=== PATIENT | male | born 1995 | race Caucasian/White ===

== ENCOUNTER 2016-09-24 10:28 | Emergency (ER) | payer SELFPAY ==
--- NOTE | 2016-09-24 11:02 | Emergency Department Record ---
History of Present Illness - General Chief Complaint: General Stated Complaint: MEDICATIN REFILLS Time Seen by Provider: 09/24/16 10:52 Source: Patient, RN notes reviewed Mode of Arrival: Ambulatory - History of Present Illness Initial comments: patient out of his meds and moved here from [place] 2 months ago [address] his Dr[address] in [place] will not refill and he hasn't set up aDr yet. [place] [facility] [place] [facility] [place]. PMH Bipolar , PTSD, ODD borderline personality disorder and OCC. PSH none. Dr. Terrell was his psychiatrist in [place]. No other medical problem No Chest pain or dyspnea and eating ok. - Related Data Previous Rx's Medication Instructions Recorded Bupropion HCl [Wellbutrin Sr] 100 mg PO BID #60 tablet.er 09/24/16 Buspirone HCl [Buspar] 15 mg PO BID #120 tablet 09/24/16 Divalproex Sodium [Depakote ER] 1,500 mg PO DAILY #90 tab.sr.24h 09/24/16 Propranolol HCl [Inderal] 1 tab PO BID #60 tablet 09/24/16 Venlafaxine HCl [Venlafaxine HCl 75 mg PO DAILY #90 tab.er.24 09/24/16 ER] Allergies Allergy/AdvReac Type Severity Reaction Status Date / Time No Known Drug Allergies Allergy Verified 09/24/16 10:35 Travel Screening - Travel/Exposure Within Last 30 Days Have you traveled within the last 30 days?: No - Travel/Exposure Within Last Year Have you traveled outside the [place] in the last year?: No - Additonal Travel Details Have you been exposed to anyone with a communicable illness?: No - Travel Symptoms Symptom Screening: None Review of Systems Reviewed: No additional complaints except as noted below Constitutional: Reports: As per HPI. Denies: Chills, Fever, Malaise, Night sweats, Weakness, Weight change Eyes: Reports: As per HPI. Denies: Eye discharge, Eye pain, Photophobia, Vision change ENT: Reports: As per HPI. Denies: Congestion, Dental pain, Ear pain, Epistaxis , Hearing loss, Throat pain Respiratory: Reports: As per HPI. Denies: Cough, Dyspnea, Hemoptysis, Stridor, Wheezes Cardiovascular: Reports: As per HPI. Denies: Arrhythmia, Chest pain, Dyspnea on exertion, Edema, Murmurs, Orthopnea, Palpitations, Paroxysmal nocturnal dyspnea, Rheumatic Fever, Syncope Endocrine: Reports: As per HPI. Denies: Fatigue, Heat or cold intolerance, Polydipsia, Polyuria Gastrointestinal: Reports: As per HPI. Denies: Abdominal pain, Constipation, Diarrhea, Hematemesis, Hematochezia, Melena, Nausea, Vomiting Genitourinary: Reports: As per HPI. Denies: Dysuria, Frequency, Hematuria, Incontinence, Retention, Testicular pain, Testicular mass, Urgency Musculoskeletal: Reports: As per HPI. Denies: Arthralgia, Back pain, Gout, Joint swelling, Myalgia, Neck pain Skin: Reports: As per HPI. Denies: Bruising, Change in color, Change in hair/ nails, Lesions, Pruritus, Rash Neurological: Reports: As per HPI. Denies: Abnormal gait, Confusion, Headache, Numbness, Paresthesias, Seizure, Tingling, Tremors, Vertigo, Weakness Psychiatric: Reports: As per HPI. Denies: Anxiety, Auditory hallucinations, Depression, Homicidal thoughts, Suicidal thoughts, Visual hallucinations Hematological/Lymphatic: Reports: As per HPI. Denies: Anemia, Blood Clots, Easy bleeding, Easy bruising, Swollen glands Past Medical History - SOCIAL HISTORY Smoking Status: Never smoker Alcohol Use: None Drug Use: None - RESPIRATORY Hx Respiratory Disorders: No - CARDIOVASCULAR Hx Cardio Disorders: No - NEURO Hx Neuro Disorders: No - GI Hx GI Disorders: No - Hx Genitourinary Disorders: No - ENDOCRINE Hx Endocrine Disorders: No - MUSCULOSKELETAL Hx Musculoskeletal Disorders: No - PSYCH Hx Psych Problems: Yes Comment:: O.D.D., bipolar, A.D.D. - HEMATOLOGY/ONCOLOGY Hx Hematology/Oncology Disorders: No Family Medical History Any Significant Family History?: Yes Hx Anxiety: Father, Mother Hx Dementia: Grandparents Hx Diabetes: Father Hx Heart Disease: Mother Hx HTN: Mother Hx Stroke: Grandparents Physical Exam - General General Appearance: Alert, Oriented x3, Cooperative, No acute distress - Head Head exam: Normal inspection - Eye Eye exam: Normal appearance, PERRL Pupils: Normal accommodation - ENT ENT exam: Normal exam, Mucous membranes moist, Normal external ear exam, Normal orophraynx, TM's normal bilaterally Ear exam: Normal external inspection. negative: External canal tenderness Nasal Exam: Normal inspection. negative: Discharge, Sinus tenderness Mouth exam: Normal external inspection, Tongue normal Teeth exam: Normal inspection. negative: Dental caries Throat exam: Normal inspection. negative: Tonsillar erythema, Tonsillar exudate - Neck Neck exam: Normal inspection, Full ROM. negative: Tenderness - Respiratory Respiratory exam: Normal lung sounds bilaterally. negative: Respiratory distress - Cardiovascular Cardiovascular Exam: Regular rate, Normal rhythm, Normal heart sounds - GI/Abdominal GI/Abdominal exam: Soft, Normal bowel sounds. negative: Tenderness - Rectal Rectal exam: Deferred - exam: Deferred - Extremities Extremities exam: Normal inspection, Full ROM, Normal capillary refill. negative: Tenderness - Back Back exam: Reports: Normal inspection, Full ROM. Denies: Muscle spasm, Rash noted, Tenderness - Neurological Neurological exam: Alert, Normal gait, Oriented X3, Reflexes normal - Psychiatric Psychiatric exam: Normal affect, Normal mood - Skin Skin exam: Dry, Intact, Normal color, Warm Course Vital Signs 09/24/16 10:42 Temperature 98.1 F Pulse Rate 93 H Blood Pressure 103/60 Pulse Ox 97 Disposition Clinical Impression: Bipolar 1 disorder Disposition: Home, Self-Care Instructions: Bipolar Disorder (ED) Additional Instructions: follow up with primary physician and they can set up a psychiatrist once he gets his insurance. Prescriptions: Buspirone HCl [Buspar] 15 mg PO BID #120 tablet Divalproex Sodium [Depakote ER] 1,500 mg PO DAILY #90 tab.sr.24h Propranolol HCl [Inderal] 1 tab PO BID #60 tablet Venlafaxine HCl [Venlafaxine HCl ER] 75 mg PO DAILY #90 tab.er.24 Bupropion HCl [Wellbutrin Sr] 100 mg PO BID #60 tablet.er Forms: Patient Portal Access Time of Disposition: 11:13
--- NOTE | 2016-09-24 11:16 | Emergency Department Record ---
History of Present Illness - General Chief Complaint: General Stated Complaint: MEDICATIN REFILLS Time Seen by Provider: 09/24/16 10:52 Source: Patient, RN notes reviewed Mode of Arrival: Ambulatory - Related Data Previous Rx's Medication Instructions Recorded Bupropion HCl [Wellbutrin Sr] 100 mg PO BID #60 tablet.er 09/24/16 Buspirone HCl [Buspar] 15 mg PO BID #120 tablet 09/24/16 Divalproex Sodium [Depakote ER] 1,500 mg PO DAILY #90 tab.sr.24h 09/24/16 Propranolol HCl [Inderal] 1 tab PO BID #60 tablet 09/24/16 Venlafaxine HCl [Venlafaxine HCl 75 mg PO DAILY #90 tab.er.24 09/24/16 ER] Allergies Allergy/AdvReac Type Severity Reaction Status Date / Time No Known Drug Allergies Allergy Verified 09/24/16 10:35 Travel Screening - Travel/Exposure Within Last 30 Days Have you traveled within the last 30 days?: No - Travel/Exposure Within Last Year Have you traveled outside the [place] in the last year?: No - Additonal Travel Details Have you been exposed to anyone with a communicable illness?: No - Travel Symptoms Symptom Screening: None Review of Systems Constitutional: Reports: As per HPI. Denies: Chills, Fever, Malaise, Night sweats, Weakness, Weight change Eyes: Reports: As per HPI. Denies: Eye discharge, Eye pain, Photophobia, Vision change ENT: Reports: As per HPI. Denies: Congestion, Dental pain, Ear pain, Epistaxis , Hearing loss, Throat pain Respiratory: Reports: As per HPI. Denies: Cough, Dyspnea, Hemoptysis, Stridor, Wheezes Cardiovascular: Reports: As per HPI. Denies: Arrhythmia, Chest pain, Dyspnea on exertion, Edema, Murmurs, Orthopnea, Palpitations, Paroxysmal nocturnal dyspnea, Rheumatic Fever, Syncope Endocrine: Reports: As per HPI. Denies: Fatigue, Heat or cold intolerance, Polydipsia, Polyuria Gastrointestinal: Reports: As per HPI. Denies: Abdominal pain, Constipation, Diarrhea, Hematemesis, Hematochezia, Melena, Nausea, Vomiting Genitourinary: Reports: As per HPI. Denies: Dysuria, Frequency, Hematuria, Incontinence, Retention, Testicular pain, Testicular mass, Urgency Musculoskeletal: Reports: As per HPI. Denies: Arthralgia, Back pain, Gout, Joint swelling, Myalgia, Neck pain Skin: Reports: As per HPI. Denies: Bruising, Change in color, Change in hair/ nails, Lesions, Pruritus, Rash Neurological: Reports: As per HPI. Denies: Abnormal gait, Confusion, Headache, Numbness, Paresthesias, Seizure, Tingling, Tremors, Vertigo, Weakness Psychiatric: Reports: As per HPI. Denies: Anxiety, Auditory hallucinations, Depression, Homicidal thoughts, Suicidal thoughts, Visual hallucinations Hematological/Lymphatic: Reports: As per HPI. Denies: Anemia, Blood Clots, Easy bleeding, Easy bruising, Swollen glands Past Medical History - SOCIAL HISTORY Smoking Status: Never smoker Alcohol Use: None Drug Use: None - RESPIRATORY Hx Respiratory Disorders: No - CARDIOVASCULAR Hx Cardio Disorders: No - NEURO Hx Neuro Disorders: No - GI Hx GI Disorders: No - Hx Genitourinary Disorders: No - ENDOCRINE Hx Endocrine Disorders: No - MUSCULOSKELETAL Hx Musculoskeletal Disorders: No - PSYCH Hx Psych Problems: Yes Comment:: O.D.DPedro, bipolar, A.D.Billy - HEMATOLOGY/ONCOLOGY Hx Hematology/Oncology Disorders: No Family Medical History Any Significant Family History?: Yes Hx Anxiety: Father, Mother Hx Dementia: Grandparents Hx Diabetes: Father Hx Heart Disease: Mother Hx HTN: Mother Hx Stroke: Grandparents Course Vital Signs 09/24/16 10:42 Temperature 98.1 F Pulse Rate 93 H Blood Pressure 103/60 Pulse Ox 97 I told patient this can only be done once. Disposition Clinical Impression: Bipolar 1 disorder Disposition: Home, Self-Care Instructions: Bipolar Disorder (ED) Additional Instructions: follow up with primary physician and they can set up a psychiatrist once he gets his insurance. Prescriptions: Buspirone HCl [Buspar] 15 mg PO BID #120 tablet Divalproex Sodium [Depakote ER] 1,500 mg PO DAILY #90 tab.sr.24h Propranolol HCl [Inderal] 1 tab PO BID #60 tablet Venlafaxine HCl [Venlafaxine HCl ER] 75 mg PO DAILY #90 tab.er.24 Bupropion HCl [Wellbutrin Sr] 100 mg PO BID #60 tablet.er Forms: Patient Portal Access
== END 2016-09-24 11:31 | disposition home or self-care (01) ==
LOC: ER 10:28
DX: F31.9 Bipolar disorder, unspecified (principal); Z76.0 Encounter for issue of repeat prescription
CPT/HCPCS: 99281